=== PATIENT | female | born 1945 | race Caucasian/White ===

== ENCOUNTER → 2025-07-11 14:45 | Outpatient (REF) | payer OTHER, SELFPAY | LOC: EMG 14:45 | PROVIDERS: ATTENDING PHYSICIAN Orthopaedic Surgery Orthopaedic Trauma | DX: S52.021D Displaced fracture of olecranon process without intraarticular extension of right ulna, subsequent encounter for closed fracture with routine healing (principal); S72.141D Displaced intertrochanteric fracture of right femur, subsequent encounter for closed fracture with routine healing; Z96.641 Presence of right artificial hip joint; R20.0 Anesthesia of skin | CPT/HCPCS: 95886; 95909 ==

== ENCOUNTER → 2025-07-30 09:35 | Outpatient (REF) | payer OTHER, SELFPAY ==
[2025-07-30 11:00] LABS: Hematocrit 38.2 % (37.0-47.0); Hemoglobin 12.7 g/dL (12.0-16.0); Mean Corp Hgb Conc. 33.2 g/dL (33.0-37.0); Mean Corpuscular Volume 85.5 fL (81.0-99.0); Nucleated Red Blood Cells % 0 %; Platelet Count 293 10^3/uL (130-400); Red Cell Dist. Width 14.3 % (11.5-14.5); Urine Character Clear (Clear)
[2025-07-30 11:07] LABS: Urine Squamous Cell 16-20 /LPF (Few)
[2025-07-30 11:09] LABS: Urine Red Blood Cell 0-2 /HPF (0-2)
[2025-07-30 11:27] LABS: ALT (SGPT) 10 U/L (0-35); AST (SGOT) 18 U/L (14-36); Albumin 4.4 g/dl (3.5-5.0); Alkaline Phosphatase 79 U/L (38-126); Blood Urea Nitrogen 16 mg/dl (7-17); Calcium 10.1 mg/dl (8.4-10.2); Carbon Dioxide 27 mmol/L (22-30); Chloride 104 mmol/L (98-107); Glucose 91 mg/dl (70-99); Potassium 3.6 mmol/L (3.5-5.1); Sodium 139 mmol/L (135-145); Total Protein 7.4 g/dl (6.3-8.2); eGFR > 60.00
[2025-07-30 13:36] LABS: C-Reactive Protein 11.00 mg/L (0.0-10.00)
== END ==
LOC: REG 09:35
PROVIDERS: ATTENDING PHYSICIAN Orthopaedic Surgery Orthopaedic Trauma
DX: Z01.818 Encounter for other preprocedural examination (principal)
CPT/HCPCS: 71046; 80053; 81003; 81015; 85025; 85652; 86140; 86850; 86900; 86901; 87086; 93005

== ENCOUNTER → 2025-08-01 13:38 | Outpatient (REF) | payer OTHER, SELFPAY | LOC: REG 13:38 | PROVIDERS: ATTENDING PHYSICIAN Orthopaedic Surgery Orthopaedic Trauma | DX: Z01.818 Encounter for other preprocedural examination (principal) | CPT/HCPCS: 87070 ==

== ENCOUNTER → 2025-08-10 13:52 | Outpatient (REF) | payer OTHER, SELFPAY | LOC: RAD 13:52 | PROVIDERS: ATTENDING PHYSICIAN Orthopaedic Surgery Orthopaedic Trauma | DX: S72.141D Displaced intertrochanteric fracture of right femur, subsequent encounter for closed fracture with routine healing (principal) | CPT/HCPCS: 93971 ==